=== PATIENT | female | born 1965 | race Caucasian/White ===

== ENCOUNTER 2016-09-09 16:22 | Emergency (ER) | payer OTHER ==
[~2016-09-09] VITALS: Ht 162.6 cm; Wt 101.5 kg
[~2016-09-09 16:22] MED LIST: MOTRIN600 MG PO; ULTRAM50 MG PO
[2016-09-09] MEDS ORDERED: CLINDAMYCIN HC300 MG PO (17:08)
[2016-09-09] MEDS ORDERED: TRAMADOL HCL50 MG PO (17:08)
[2016-09-09] MEDS ORDERED: NAPROSYN500 MG PO (17:08)
[2016-09-09 17:32] VITALS: BP 146/74
== END 2016-09-09 17:34 | disposition home or self-care (01) ==
LOC: EME 16:22
DX: K04.7 Periapical abscess without sinus (principal); L03.211 Cellulitis of face; G89.29 Other chronic pain; F17.200 Nicotine dependence, unspecified, uncomplicated
CPT/HCPCS: 99281; 99282